=== PATIENT | male | born 1980 | race Caucasian/White ===

== ENCOUNTER 2020-08-24 15:31 | Emergency (ER) | payer OTHER ==
[~2020-08-24] VITALS: Ht 182.9 cm; Wt 122.1 kg
[2020-08-24 16:00] VITALS: BP 167/100
--- NOTE | 2020-08-24 16:15 | NUR ---
PROVIDER AT BEDSIDE FOR ASSESSMENT
[2020-08-24] MEDS ORDERED: LIDOCAINE-MPF 2% ,5ML ONE (16:30)
[2020-08-24] MEDS ORDERED: DIPH,PERTUSS(ACELL),TET VAC/PF 0.5 ML IM-VACC ONE ×2 (16:43→17:00)
[2020-08-24] MEDS ORDERED: LIDOCAINE-MPF 1%, 5ML INFIL ONE (17:00)
--- NOTE | 2020-08-24 17:20 | NUR ---
PROVIDER AT BEDSIDE FOR WOUND CARE.
--- NOTE | 2020-08-24 17:35 | NUR ---
PT COMES IN WITH LACERATION TO RIGHT LOWER LEG. 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 MONITORS CONNECTED. VSS. NAD. CALL LIGHT W/IN REACH
--- NOTE | 2020-08-24 18:14 | NUR ---
PT AMBULATED TO DISCHARGE WITH STEADY GAIT. PT ENCOURAGED TO FOLLOWUP DISCUSSED. PT EDUCATED TO RETURN TO THE ED WITH WORSENING SYMPTOMS
== END 2020-08-24 18:15 | disposition home or self-care (01) ==
LOC: EDSEX 15:31 → ED 17:57
DX: S81.811A Laceration without foreign body, right lower leg, initial encounter (principal); W22.8XXA Striking against or struck by other objects, initial encounter; Y93.89 Activity, other specified; Y92.89 Other specified places as the place of occurrence of the external cause; Y99.0 Civilian activity done for income or pay
CPT/HCPCS: 12031; 12051; 90471; 90715; 99284